=== PATIENT | female | born 1960 | race Caucasian/White ===

== ENCOUNTER 2020-12-21 07:30 | Outpatient (RCR) | payer OTHER, SELFPAY ==
--- NOTE | 2020-11-23 13:13 | PTOPEVAL ---
PHYSICAL THERAPY EVALUATION AND PLAN OF CARE Thank you for referring Evelina Be to [facility].? The patient is scheduled to be seen for therapy? 2x/week for 4 weeks. Please review, sign, date and return this plan of care SHAYY. I agree with and certify that the following plan of care is medically necessary. Referring Physician Date Attending Provider: Alexsandra Hartamn MD Evaluation Diagnosis left adhesive capsulitis Onset 04/2020 Subjective Information does not recall an injury. Query Text:As Reported By Patient/ Pain started in the back of Family the arm and did have sharp and shooting pains. Over the last several months, the pain has started to decrease, but she does have limited motion and certain motions will cause significant pain. Reaching behind back and putting hands on hips and trying to perform upper body dressing are challenging and painful and she often has to modify the activity. Self Report Pain Assessment Left Shoulder(s) Reported Pain Level 0 Pain Description Sharp,Shooting Pain Frequency Chronic,Intermittent Lowest Pain Intensity 0 Greatest Pain Intensity 9 Pain Aggravating Factors Other Pain Aggravating Factors Other Pain Aggravating Factors reaching behind back, putting arms overhead Pain Behaviors None Pain Score Pain Score 0: Self Report Interventions Used Interventions Used By Clinicians Exercise,Joint Mobilization Pain Relief Interventions Used By None Patient Upper Extremity Range of Motion Scapular/ Shoulder Range of Motion Right Shoulder Flexion - Active 149 Shoulder Abduction - Active 147 Shoulder Medial Rotation - Active T8 Query Text:Reach Behind the Back Shoulder Lateral Rotation - Active T3 Query Text:Reach Behind the Head Left Shoulder Flexion - Active 125 Shoulder Abduction - Active 109 Shoulder Medial Rotation - Active left PSIS Query Text:Reach Behind the Back Shoulder Lateral Rotation - Active occiput Query Text:Reach Behind the Head Upper Extremity Muscle Strength Testing Scapular/Shoulder Left Shoulder Flexion Strength 4+ Good + Shoulder Abduction Strength 4+ Good + Shoulder Medial Rotation Strength 4+ Good + Shoulder Lateral Rotation Strength 4+ Good + Posture Thoracic Spine Posture Increased Kyphosis Lumbar Spine Posture
[2020-12-17 16:14] LABS: Urine Cotinine NEGATIVE
--- NOTE | 2020-12-21 08:09 | PTOPEVAL ---
PHYSICAL THERAPY DISCHARGE NOTE Thank you for referring Evelina Be to [facility].? Please review, sign, date and return this discharge SHAYY. I agree with and certify that the following plan of care is medically necessary. Referring Physician Date Diagnosis left adhesive capsulitis Onset 04/2020 Subjective Information Evelina is reporting much Query Text:As Reported By Patient/ greater ease with activities Family that were challenging before start of therapy. States that there is a good amount of improvement in the left shoulder. States that her biggest limitation, although it is better, is reaching behind her back. Self Report Pain Assessment Left Shoulder(s) Reported Pain Level 0 Pain Description Soreness Pain Frequency Chronic,Intermittent Pain Aggravating Factors Other Pain Aggravating Factors Other Pain Aggravating Factors reaching behind back, putting arms overhead Pain Behaviors None Pain Score Pain Score 0: Self Report Interventions Used Interventions Used By Clinicians Exercise,Joint Mobilization Pain Relief Interventions Used By None Patient Upper Extremity Range of Motion Scapular/ Shoulder Range of Motion Right Shoulder Flexion - Active 149 Shoulder Abduction - Active 147 Shoulder Medial Rotation - Active T8 Query Text:Reach Behind the Back Shoulder Lateral Rotation - Active T3 Query Text:Reach Behind the Head Left Shoulder Flexion - Active 142 Shoulder Abduction - Active 158 Shoulder Medial Rotation - Active L5 Query Text:Reach Behind the Back Shoulder Lateral Rotation - Active T2 Query Text:Reach Behind the Head Upper Extremity Muscle Strength Testing Scapular/Shoulder Left Shoulder Flexion Strength 4+ Good + Shoulder Abduction Strength 4+ Good + Shoulder Medial Rotation Strength 5 Normal Shoulder Lateral Rotation Strength 5 Normal Posture Posture Sitting Position Posture Evaluation View Lateral Thoracic Spine Posture Increased Kyphosis Lumbar Spine Posture Neutral Shoulder Posture (L) Rounded,(L) Forward Scapula Posture (L) Tipped Palpation no crepitus noted this date in left scapula; Rehab Teaching Rehab Teaching Teaching Topic Rehab Teaching Topic Components Diagnosis,Home Program As Pertains To Safety Recipient Patient Lear
== END 2020-12-21 10:19 | disposition home or self-care (01) ==
LOC: ANHPT 07:30
PROVIDERS: PCP Family Medicine; Visit Provider Family Medicine
DX: M75.00 Adhesive capsulitis of unspecified shoulder (principal)
CPT/HCPCS: 80307; 97110; 97140; 97161

== ENCOUNTER 2021-05-05 14:04 | Outpatient (CLI) | payer OTHER, SELFPAY ==
--- NOTE | ~2021-05-05 | MM_ITS ---
EXAMINATION: MM screening han BI w janae HISTORY: Screening mammogram TECHNIQUE: Craniocaudal and mediolateral oblique 3-D tomosynthesis images were obtained and synthetic 2-D images were generated. CAD analysis was submitted and interpreted. COMPARISON: No prior mammogram is available for comparison at this institution. BREAST PARENCHYMAL COMPOSITION: The breasts are heterogeneously dense, which may obscure small masses .FINDINGS: Indeterminate grouped microcalcifications noted on the right. Diagnostic right mammogram w ith magnification views is recommended. Otherwise there is no evidence of suspicious mass, calcification, or architectural distortion to sugg est malignancy in either breast. IMPRESSION: 1. Indeterminate right breast microcalcifications 2. Diagnostic right mammogram with magnification views is recommended BI-RADS Category 0: Incomplete: Needs additional imaging evaluation. Reviewed, dictated and finalized at location A.
--- NOTE | ~2021-05-05 | DEXA_ITS ---
Bone Density Report Name: Evelina Be Age: 61 Sex: Female Ethnicity: White Date of : 1960 Indication: postmenopausal; Referring Provider: YOJANA MYRICK Study: Bone densitometry was performed. Exam Date: May 05, 2021 Accession number: [id number] Bone Density: Region BMD T-score Z-score Classification AP Spine (L1-L4) 0.909 -1.3 0.4 Osteopenia Femoral Neck (Left) 0.641 -1.9 -0.5 Osteopenia Total Hip (Left) 0.721 -1.8 -0.7 Osteopenia Total Hip Bilateral Avg 0.747 -1.6 -0.5 Osteopenia Femoral Neck (Right) 0.682 -1.5 -0.1 Osteopenia Total Hip (Right) 0.771 -1.4 -0.3 Osteopenia World Health Organization criteria for BMD impression classify patients as: Normal (T-score at or above -1.0), Osteopenia (T-score between -1.0 and -2.5), or Osteoporosis (T-score at or below -2.5). 10-year Fracture Risk(1): Major Osteoporotic Fracture 9.5% Hip Fracture 1.2% Reported Risk Factors: [place] (), Neck BMD=0.641, BMI=24.0 (1) FRAX(R) Version 3.08. Fracture probability calculated for an untreated patient. Fracture probability may be lower if the patient has received treatment. Previous Exams: Region Exam Age BMD T-score BMD Change BMD Change Date g/cm2 vs Baseline vs Previous AP Spine(L1-L4) 05/05/2021 61 0.909 -1.3 -0.146(-13.9%) -0.146(-13.9%) 02/23/2009 48 1.055 0.1 Total Hip(Left) 05/05/2021 61 0.721 -1.8 -0.112(-13.4%) -0.112(-13.4%) 02/23/2009 48 0.833 -0.9 Total Hip(Right) 05/05/2021 61 0.771 -1.4 -0.116(-13.1%) -0.116(-13.1%) 02/23/2009 48 0.887 -0.5 *Denotes significance at 95% confidence level, LSC for AP Spine = 0.022 g/cm2, LSC for Total Hip = 0.027 g/cm2 Clinical Information Provided by Patient: Patient maximum height was 68 Menopause Age: 53 No regular weight bearing exercise Drinks caffeinated beverages Onset of menses at age 12 Number of children 3 Impression: The patient has low bone mass, based on the Left Femoral Neck T-score. The patient has an estimated ten-year risk of hip fracture of 1.2% and an estimated ten-year risk of major fracture of 9.5%, based on the WHO FRAX algorithm. No significant bone loss was observed. Discussion: BONE DENSITY IS LOW AT ONE OR MORE SKELETAL SITES. This patient's lowest T-score is low at one or more skeletal sites. It meets the World Health Organization's (WHO) criteria for ?low bone mass? (T-score between -1.0 and -2.5). The patient's 10-year ris
== END 2021-05-05 14:05 | disposition home or self-care (01) ==
LOC: ANHIMG 14:04
PROVIDERS: PCP Family Medicine; Visit Provider Family Medicine
DX: Z12.31 Encounter for screening mammogram for malignant neoplasm of breast (principal); Z78.0 Asymptomatic menopausal state; R92.8 Other abnormal and inconclusive findings on diagnostic imaging of breast; M85.89 Other specified disorders of bone density and structure, multiple sites
CPT/HCPCS: 77063; 77067; 77080

== ENCOUNTER 2021-05-18 12:59 | Outpatient (CLI) | payer OTHER, SELFPAY ==
[2021-05-18 13:34] LABS: Alanine Aminotransferase 15 U/L (4-35); Albumin Level 4.3 g/dL (3.5-5.1); Alkaline Phosphatase 114 U/L (38-126); Anion Gap 9 mmol/L (8-16); Aspartate Amino Transferase 24 U/L (14-36); Bilirubin,Total 0.6 mg/dL (0.2-1.3); Blood Urea Nitrogen 12 mg/dL (7-17); Calcium 9.2 mg/dL (8.4-10.2); Carbon Dioxide 30 mmol/L (22-30); Chloride 104 mmol/L (98-107); Estimated Glomerular Filt Rate 50; Glucose 106 mg/dL (65-110); Potassium 3.6 mmol/L (3.4-5.0); Sodium 143 mmol/L (137-145)
[2021-05-22 15:31] LABS: Vitamin D 1,25 (OH)2 Total 40 pg/mL (18-72); Vitamin D2 1,25 (OH)2 <8 pg/mL; Vitamin D3 1,25 (OH)2 40 pg/mL
== END 2021-05-18 13:00 | disposition home or self-care (01) ==
LOC: ANHLAB 13:04
PROVIDERS: PCP Family Medicine; Visit Provider Family Medicine
DX: Z78.0 Asymptomatic menopausal state (principal); M85.80 Other specified disorders of bone density and structure, unspecified site
CPT/HCPCS: 36415; 80053; 82652

== ENCOUNTER 2021-06-07 13:58 | Outpatient (CLI) | payer OTHER, SELFPAY ==
--- NOTE | ~2021-06-07 | MM_ITS ---
EXAMINATION: MM diagnostic mammo unilat RT HISTORY: Right breast calcifications on screening mammogram TECHNIQUE: Magnification views of the right breast were performed. CAD analysis was submitted and int erpreted. COMPARISON: 05/05/2021, 01/04/2018, 12/22/2016 BREAST PARENCHYMAL COMPOSITION: The breasts are heterogeneously dense, which may obscure small masses . FINDINGS: There are grouped, coarse heterogeneous calcifications middle third of the slightly inner b reast at the 2:00 location 6 cm deep to the nipple. No associated mass is identified. IMPRESSION: 1. Indeterminate right breast calcifications. 2. Stereotactic biopsy is recommended. BI-RADS category 4, suspicious findings. Reviewed, dictated and finalized at location A. ECT PRODUCTION ENGINEER
== END 2021-06-07 13:59 | disposition home or self-care (01) ==
LOC: ANHIMG 13:59
PROVIDERS: PCP Family Medicine; Visit Provider Family Medicine
DX: R92.1 Mammographic calcification found on diagnostic imaging of breast (principal)
CPT/HCPCS: 77065

== ENCOUNTER 2021-06-29 12:34 | Outpatient (CLI) | payer OTHER, SELFPAY ==
--- NOTE | ~2021-06-29 | MM_ITS ---
MM stereotactic bx RT, MM post biopsy diagnostic RT, MM stereotactic specimen RT EXAMINATION: MM ster eotactic bx RT, MM post biopsy diagnostic RT, MM stereotactic specimen RT DATE: Renzo Pardo M.D. INDICATION: Abnormal calcifications in the left breast. Stereotactic core biopsy is requested evalua te for malignancy.] TECHNIQUE AND FINDINGS: The risks and potential benefits of the procedure were discussed with the patient and written informe d consent was obtained. The patient was placed in the prone position clustered at the table with the left breast in mediolateral compression, and the area of interest was localized and targeted utilizi ng digital imaging with stereotaxis. After sterile preparation of the skin, 1% lidocaine was utilized for local anesthesia at the skin pun cture site and 1% lidocaine with epinephrine was utilized for deeper local anesthesia/is about the bi opsy site. A 9G Medivo vacuum assisted biopsy needle was advanced to the level of the calcification o f interest from a medial approach utilizing stereotactic guidance and a total of 6 tissue core biopsi es were obtained. A specimen radiograph demonstrates that the calcifications of interest are included within the tissue cores. A tissue marker clip was then placed at the biopsy site. The needle was removed and hemosta sis was achieved. The patient tolerated the procedure well and there is no evidence of significant i mmediate complication. The patient was given verbal as well as written postprocedural instructions p rior to discharge from the department. Tissue cores were submitted to surgical pathology for histolo gic analysis. A 2-view RIGHT unilateral digital mammogram was obtained post procedure and this demonstrates that th e tissue marker clip is in expected position.] IMPRESSION: 1. Successful stereotactic biopsy of calcifications in the upper inner quadrant of the right breast, followed by tissue marker clip placement. Please refer to pathology report for histologic analysis. Reviewed, dictated and finalized at location A. ING MILL OPERATOR IMPRESSION: 1. Successful stereotactic biopsy of calcifications in the upper inner quadran t of the right breast, followed by tissue marker clip placement. Please refer to pathology report for histologic analysis. IMPRESSION: 1. Successful stereotactic biopsy of calcifications in the upper inner quadran t of the right breast, followed by tissue marker clip placement. Please refer to pathology report for histologic analysis.
== END 2021-06-29 12:35 | disposition home or self-care (01) ==
PROVIDERS: PCP Family Medicine; Visit Provider Family Medicine
DX: D05.11 Intraductal carcinoma in situ of right breast (principal); R92.0 Mammographic microcalcification found on diagnostic imaging of breast
CPT/HCPCS: 19081; 77065; 88305; 88342; A4648

== ENCOUNTER 2021-09-04 13:24 | Emergency (ER) | payer OTHER, SELFPAY ==
[2021-09-04 13:35] VITALS: BP 112/66; PULSE 76; RESP 18; TEMP 36.2; O2SAT 100
--- NOTE | 2021-09-04 13:56 | ED.GENADULT ---
HPI - General Adult General Chief complaint: Urogenital-Female Stated complaint: uti complaint Source: patient Mode of arrival: ambulatory Limitations: no limitations History of Present Illness HPI narrative: Patient presents for evaluation of dysuria for the last 2 days. Symptoms have been intermittent. She denies any fever, chills, nausea, vomiting, abdominal pain, back pain, vaginal bleeding/discharge/pruritus. Denies any urinary hesitancy or hematuria. She has had a UTI in the past and this feels similar. She took some tylenol this morning. Otherwise, she has not tried any other therapies. Related Data Allergies Allergy/AdvReac Type Severity Reaction Status Date / Time No Known Allergies Allergy Verified 09/04/21 13:57 Review of Systems Review of Systems: CONSTITUTIONAL: Denies fever, chills, or sweats. EYES: Denies visual changes, redness, or discharge. ENT: Denies rhinorrhea, congestion, sore throat, or otalgia. CARDIOVASCULAR: Denies chest pain, palpitations, or edema. RESPIRATORY: Denies cough or dyspnea. GASTROINTESTINAL: Denies abdominal pain, nausea, vomiting, or diarrhea. GENITOURINARY: Reports dysuria. Denies hematuria, urgeny or hesitancy. SKIN: Denies rash or itching. MUSCULOSKELETAL: Denies back pain, joint pain, or myalgia. NEUROLOGIC: Denies headache, numbness, dizziness, or weakness. PSYCHIATRIC: Denies anxiety or depression. [facility]LY [facility] Past Medical History Medical History Cervical radiculopathy Colon polyp Foreign body finger Osteopenia Surgical History Surgical History H/O breast biopsy Family History Family History Mother Family history of thyroid disease Hypertension Father Diabetes mellitus Hypertension Family history of elevated blood lipids Family history of cardiovascular disease Acute myocardial infarction Family history of coronary artery disease Sibling Family history of gastrointestinal disorder Family history of allergic disorder Grandparent Family history of cardiovascular disease Other Depression Social History Social History (Updated 09/04/21 @ 13:59 by KURT Topete, ) Second hand tobacco smoke exposure: No Alcohol intake: current Substance use: never Living arrangements: with family Gender identity (if verbalized by the patient): Female Sexual Orientation (if Verbalized by the Patient): Straight or Heterosexual Spiritual care concerns: No Exam Narrative: GENERAL: Well-appearing, well-nourished, and in no acute distress. HEAD: Normocephalic, atraumatic. EYES: PERRLA and EOMI. ENT: Nares clear, no rhinorrhea or epistaxis. Mucous membranes moist. Oropharynx without tonsillar hypertrophy exudate or other lesions. Bilateral TMs pearly loza nonbulging NECK: Supple. No adenopathy or masses. No carotid bruits or JVD CHEST: Clear to auscultation. No respiratory distress. No wheezes rales or rhonchi HEART: Regular rate and rhythm. No murmur heard. Normal peripheral pulses. ABDOMEN: Soft, nontender, nondistended, normal active bowel sounds. No CVA tenderness EXTREMITIES: Normal range of motion. No edema. SKIN: Warm, dry, no rash. NEURO: No focal deficits. Alert and oriented x3. PSYCH: Normal mood and affect. Course Course Emergency Course: This is a 61-year-old female who presented with complaints of dysuria. Urine showed 3+ leukocytes and 3+ blood. Will treat with bactrim and pyridium. She has no systemic signs of infection. She should follow up outpatient for further evaluation and treatment and return for worsening symptoms. Pt in agreement with plan of care. Level of Care: Express Care Visit Vital Signs Vital signs: Vital Signs Temperature 36.2 C L 09/04/21 13:35 Pulse Rate 76 09/04/21 13:35 Respiratory Rate 18 09/04/21 13:35 Blood
== END 2021-09-04 14:10 | disposition home or self-care (01) ==
PROVIDERS: Emergency Provider Nurse Practitioner; PCP Family Medicine
DX: N30.00 Acute cystitis without hematuria (principal); M81.0 Age-related osteoporosis without current pathological fracture; M54.12 Radiculopathy, cervical region
CPT/HCPCS: 81003; 87077; 87086; 87186; 99213; G0463

== ENCOUNTER 2022-05-18 07:52 | Outpatient (CLI) | payer OTHER, SELFPAY | END 2022-05-18 07:53 | disposition home or self-care (01) | LOC: ANHAUDASC 07:53 | PROVIDERS: PCP Family Medicine; Visit Provider Family Medicine | DX: H90.3 Sensorineural hearing loss, bilateral (principal) | CPT/HCPCS: 92557; 92567 ==

== ENCOUNTER 2022-08-11 08:00 | Outpatient (RCR) | payer OTHER, SELFPAY | END 2022-10-19 23:59 | disposition home or self-care (01) | LOC: ANHAUDASC 08:00 | PROVIDERS: PCP Family Medicine; Visit Provider Family Medicine | DX: Z46.1 Encounter for fitting and adjustment of hearing aid (principal) | CPT/HCPCS: 99199; V5257 ==

== ENCOUNTER 2023-06-12 07:00 | Outpatient (NON) | payer MEDICARE, SELFPAY | END 2023-06-12 07:01 | disposition home or self-care (01) | PROVIDERS: PCP Family Medicine; Visit Provider Internal Medicine Gastroenterology | DX: Z12.11 Encounter for screening for malignant neoplasm of colon (principal); D12.5 Benign neoplasm of sigmoid colon | CPT/HCPCS: 88305 ==

== ENCOUNTER 2023-06-12 09:33 | Day surgery (SDC) | payer MEDICARE, SELFPAY ==
[2023-05-25 13:36] VITALS: BMI 22.8
--- NOTE | 2023-06-07 13:06 | P.HP_ITS ---
History of Present Illness History of Present Illness Consent: Risks, benefits, and alternatives have been discussed and questions answered. Patient agrees to proceed with procedure. Chief complaint: History of Polyps Narrative: Evelina Be is a 63 year old female Who was referred for colon cancer screening. She had a tubular adenoma removed from her sigmoid colon about 5 years ago. Review of Systems 2 Review of Systems: All systems reviewed & are unremarkable except as noted in HPI and below PMFSH Past Medical History Medical History Cervical radiculopathy Colon polyp Foreign body finger Osteopenia Pneumonia Surgical History Surgical History H/O breast biopsy Family History Family History Mother Family history of thyroid disease Hypertension Father Diabetes mellitus Hypertension Family history of elevated blood lipids Family history of cardiovascular disease Acute myocardial infarction Family history of coronary artery disease Sibling Family history of gastrointestinal disorder Family history of allergic disorder Grandparent Family history of cardiovascular disease Other Depression Social History Social History Smoking status: Never smoker Second hand tobacco smoke exposure: No Alcohol intake: current Alcohol use details: socially Substance use: never Substance use type: does not use Lack of Transportation: No Lack of Food: Never True Current Housing: I Have Housing Concerned About Future Housing: No Difficulty Paying Gas/Electric Bills: No Difficulty Paying for Meds: No Currently Unemployed: No Education: Associate Degree Difficulty w/ Childcare or Family Care: No Living arrangements: with family Gender identity (if verbalized by the patient): Female Sexual Orientation (if Verbalized by the Patient): Straight or Heterosexual Spiritual care concerns: No Meds Home Medications and Allergies Home Medications Medication Instructions Recorded Confirmed Type tamoxifen 20 mg tablet 20 mg PO DAILY 05/09/22 06/12/23 History Allergies Allergy/AdvReac Type Severity Reaction Status Date / Time No Known Allergies Allergy Verified 06/12/23 11:16 Exam Const: General: alert Orientation/consciousness: patient oriented x3 Resp: Auscultation: clear to auscultation bilaterally Cardio: Rhythm: regular rhythm GI: GI Palp: Yes Soft to palpation and No Tenderness to palpation present (GI) Neuro: General: patient oriented x3 Assessment and Plan Assessment and plan (1) Colon cancer screening: Code(s): Z12.11 - Encounter for screening for malignant neoplasm of colon Status: Acute Assessment and Plan: Colonoscopy with possible biopsy or polypectomy or cautery or injection of substances.
[2023-06-12 11:20] VITALS: BP 124/73; PULSE 93; RESP 18; TEMP 36.7; O2SAT 100; BMI 22.4
[2023-06-12] MEDS: LACTATED RINGERS 1,000 ML 150 ML IV CONT (11:36)
--- NOTE | 2023-06-12 11:36 | WPDANESEPPF ---
Anes - Initial Pre Proc Eval Procedure: Operation Date: 06/12/23 12:30 Proposed Procedures p Diagnositc Colonoscopy - Bashir Taveras MD Date/Time: 06/12/23 11:36 Surgeon: Bashir Taveras MD Pre Op Diagnosis: History of Polyps Patient Data Age: 63 Gender: F Height: 1.73 m Weight: 66.85 kg Last Vital Signs Temp 36.7 C 06/12/23 11:20 Pulse 93 06/12/23 11:20 Resp 18 06/12/23 11:20 BP 124/73 06/12/23 11:20 Pulse Ox 100 06/12/23 11:20 O2 Del Method Room Air 06/12/23 11:20 Allergies Allergy/AdvReac Type Severity Reaction Status Date / Time No Known Allergies Allergy Verified 06/12/23 11:16 Home Medications Medication Instructions Recorded Confirmed Type tamoxifen 20 mg tablet 20 mg PO DAILY 05/09/22 06/12/23 History Patient hx anesthesia problems: none Family hx anesthesia problems: none Results Review: All pre-operative results and documents have been reviewed as part of the pre-operative evaluation. [facility], [facility] Past Medical History Medical History Cervical radiculopathy Colon polyp Foreign body finger Osteopenia Pneumonia Surgical History Surgical History H/O breast biopsy Family History Family History Mother Family history of thyroid disease Hypertension Father Diabetes mellitus Hypertension Family history of elevated blood lipids Family history of cardiovascular disease Acute myocardial infarction Family history of coronary artery disease Sibling Family history of gastrointestinal disorder Family history of allergic disorder Grandparent Family history of cardiovascular disease Other Depression Social History Social History Smoking status: Never smoker Second hand tobacco smoke exposure: No Alcohol intake: current Alcohol use details: socially Substance use: never Substance use type: does not use Lack of Transportation: No Lack of Food: Never True Current Housing: I Have Housing Concerned About Future Housing: No Difficulty Paying Gas/Electric Bills: No Difficulty Paying for Meds: No Currently Unemployed: No Education: Associate Degree Difficulty w/ Childcare or Family Care: No Living arrangements: with family Gender identity (if verbalized by the patient): Female Sexual Orientation (if Verbalized by the Patient): Straight or Heterosexual Spiritual care concerns: No Anes - Eval Final PreProcedure Day of Procedure 06/12/23 11:36 Patient weight: normal Heart: regular rate and rhythm Lungs: clear to auscultation Airway: Mallampati scale class II Neurological: alert and oriented Last oral intake: >/= 8 hours ASA classification: III Emergent: no Anesthetic plan: proceed Anesthesia type and monitoring: general GIVS and standard monitoring Results Review: All pre-operative results and documents have been reviewed as part of the pre-operative evaluation. Informed Consent: The patient's anesthetic plan and its attendant risks and benefits were discussed with the patient/family/POA. Questions were solicited and answers provided to the satisfaction of the patient/family/POA.
[2023-06-12 12:25] VITALS: BP 86/55; PULSE 70; RESP 16; O2SAT 98
[2023-06-12 12:35] VITALS: BP 92/68; PULSE 76; RESP 15; O2SAT 100
[2023-06-12 12:45] VITALS: BP 96/67; PULSE 70; RESP 16; O2SAT 100
[2023-06-12 12:51] VITALS: BP 99/61
[2023-06-12 12:56] VITALS: BP 97/68
--- NOTE | 2023-06-12 13:58 | WPDANESPN ---
Anes - Prog Note Post-Op Date/Time: 06/12/23 13:58 Cardiovascular status: normal Respiratory status: normal Airway patency: baseline Mental status: baseline Post-Op hydration status: normal Vital Signs: Last Vital Signs Temp 36.7 C 06/12/23 11:20 Pulse 70 06/12/23 12:45 Resp 16 06/12/23 12:45 BP 97/68 L 06/12/23 12:56 Pulse Ox 100 06/12/23 12:45 O2 Del Method Room Air 06/12/23 12:45 Pain Score (VAS): 0 I/O: Intake & Output 06/11/23 06/12/23 06/12/23 23:59 07:59 15:59 Intake Total 800 Balance 800 Patient Feedback: Patient satisfied with anesthetic care.
== END 2023-06-12 13:10 | disposition home or self-care (01) ==
PROVIDERS: PCP Family Medicine; Visit Provider Internal Medicine Gastroenterology
PROC: 0DJD8ZZ Inspection of Lower Intestinal Tract, Via Natural or Artificial Opening Endoscopic (ICD-10-PCS; CPT 45378; principal; 2023-06-12 12:30)
DX: Z12.11 Encounter for screening for malignant neoplasm of colon (principal); D12.5 Benign neoplasm of sigmoid colon; K57.30 Diverticulosis of large intestine without perforation or abscess without bleeding; K64.8 Other hemorrhoids
CPT/HCPCS: 45385

== ENCOUNTER 2024-01-12 10:29 | Outpatient (CLI) | payer MEDICARE, SELFPAY ==
--- NOTE | ~2024-01-12 | DEXA_ITS ---
Bone Density Report Name: CUONG GOVEA Age: 63 Sex: Female Ethnicity: White Date of : 1960 Indication: osteopenia; cancer; Referring Provider: YOJANA MYRICK Study: Bone densitometry was performed. Exam Date: January 12, 2024 Accession number: [id number] Bone Density: Region BMD T-score Z-score Classification AP Spine(L1-L4) 0.894 -1.4 0.4 Osteopenia Femoral Neck (Left) 0.695 -1.4 0.2 Osteopenia Total Hip (Left) 0.809 -1.1 0.2 Osteopenia Femoral Neck (Right) 0.666 -1.6 -0.1 Osteopenia Total Hip (Right) 0.807 -1.1 0.2 Osteopenia Total Hip Mean 0.808 -1.1 0.2 Osteopenia World Health Organization criteria for BMD impression classify patients as: Normal (T-score at or above -1.0), Osteopenia (T-score between -1.0 and -2.5), or Osteoporosis (T-score at or below -2.5). 10-year Fracture Risk(1): Major Osteoporotic Fracture 9.1% Hip Fracture 1.1% Reported Risk Factors: [place] (), Neck BMD=0.666, BMI=23.3 (1) FRAX(R) Version 3.08. Fracture probability calculated for an untreated patient. Fracture probability may be lower if the patient has received treatment. Previous Exams: Region Exam Age BMD T-score BMD Change BMD Change Date g/cm2 vs Baseline vs Previous AP Spine (L1-L4) 01/12/2024 63 0.894 -1.4 -0.015 (-1.6%) -0.015 (-1.6%) 05/05/2021 61 0.909 -1.3 Total Hip(Left) 01/12/2024 63 0.809 -1.1 0.088 (12.2%)* 0.088 (12.2%)* 05/05/2021 61 0.721 -1.8 Total Hip(Right) 01/12/2024 63 0.807 -1.1 0.036 (4.7%)* 0.036 (4.7%)* 05/05/2021 61 0.771 -1.4 *Denotes significance at 95% confidence level, LSC for AP Spine = 0.022 g/cm2, LSC for Total Hip = 0.027 g/cm2 Clinical Information Provided by Patient: Has the following medical conditions: Cancer Patient maximum height was 68 Menopause Age: 53 No regular weight bearing exercise Drinks caffeinated beverages Onset of menses at age 12 Number of children 3 Impression: The patient has low bone mass, based on the Right Femoral Neck T-score. The patient has an estimated ten-year risk of hip fracture of 1.1% and an estimated ten-year risk of major fracture of 9.1%, based on the WHO FRAX algorithm. No significant bone loss was observed. Discussion: BONE DENSITY IS LOW AT ONE OR MORE SKELETAL SITES. This patient's lowest T-score is low at one or more skeletal sites. It meets the World Health Organization's (WHO) criteria for ?low bone mass
== END 2024-01-12 10:30 | disposition home or self-care (01) ==
LOC: ANHIMG 10:31
PROVIDERS: PCP Family Medicine; Visit Provider Family Medicine
DX: Z78.0 Asymptomatic menopausal state (principal); M85.89 Other specified disorders of bone density and structure, multiple sites
CPT/HCPCS: 77080

== ENCOUNTER 2024-05-16 08:19 | Outpatient (CLI) | payer MEDICARE, SELFPAY ==
[2024-05-16 09:06] LABS: Basophils Absolute Auto 0.1 K/mm3 (0.0-0.1); Basophils Percent Auto 0.8 % (0.2-1.2); Eosinophils Absolute Auto 0.1 K/mm3 (0-0.3); Eosinophils Percent Auto 0.8 % (0-4.4); Hematocrit 40.8 % (37.0-47.0); Hemoglobin 13.1 g/dL (12.0-15.0); Immature Granulocyte Absolute 0.03 K/mm3 (0.00-0.031); Immature Granulocyte Percent A 0.5 % (0-0.5); Lymphocytes Absolute Auto 2.04 K/mm3 (0.9-3.2); Lymphocytes Percent Auto 34.6 % (18.3-44.2); Mean Corpuscular HGB Conc 32.1 g/dl (32-36); Mean Corpuscular Hemoglobin 29.6 pg (26-34); Mean Corpuscular Volume 92.1 fl (80-100); Mean Platelet Volume 10.4 fl (7.4-10.4); Monocytes Absolute Auto 0.5 K/mm3 (0.1-0.6); Neutrophils Absolute Auto 3.2 K/mm3 (1.3-6.7); Neutrophils Percent Auto 54.3 % (45.5-73.1); Platelet Count Result 200 k/mm3 (150-375); Red Blood Count 4.43 M/mm3 (4.2-5.4); Red Cell Distribution Width 13.3 % (11.5-14.5); White Blood Count 5.9 K/mm3 (4.5-10.0)
[2024-05-16 09:16] LABS: Alanine Aminotransferase 14 U/L (6-35); Albumin Level 4.4 g/dL (3.5-5.1); Alkaline Phosphatase 48 U/L (38-126); Anion Gap 10 mmol/L (4-12); Aspartate Amino Transferase 20 U/L (14-36); Bilirubin,Total 0.9 mg/dL (0.2-1.3); Blood Urea Nitrogen 16 mg/dL (7-17); Calcium 8.9 mg/dL (8.4-10.2); Carbon Dioxide 27 mmol/L (22-30); Chloride 103 mmol/L (98-107); Cholesterol 161 mg/dL (0-200); Estimated Glomerular Filt Rate 55; Glucose 93 mg/dL (65-110); HDL Direct 50 mg/dL; Sodium 140 mmol/L (137-145); Triglycerides 105 mg/dL (<150)
[2024-05-16 09:27] LABS: LDL Cholesterol Direct 79 mg/dL
== END 2024-05-16 08:20 | disposition home or self-care (01) ==
PROVIDERS: PCP Family Medicine; Visit Provider Family Medicine
DX: E78.5 Hyperlipidemia, unspecified (principal)
CPT/HCPCS: 36415; 80053; 80061; 85025

== ENCOUNTER 2025-05-23 12:15 | Outpatient (CLI) | payer MEDICARE, SELFPAY ==
--- OUTSIDE RECORDS SUMMARY | 2025-05-23 12:31 | XMS_ITS | Clinical Summary ---
Author Organization [facility] Address [address] [place] [address] Care Team Providers Care Thermospray Operator Name Role Phone Hernando Hartman MD Primary Care Provider [phone] Estelle Huston MD PhD Unavailable [phone] Allergies No known active allergies Medications tamoxifen (NOLVADEX) 20 mg tablet TAKE 1 TABLET BY MOUTH DAILY 100 tablet 2 09/02/2024 Active Active Problems Problem Noted Date Diagnosed Date Encounter for follow-up exam ination after completed treatment for conditions other than malignant neoplasm 11/26/2021 Personal history of in-situ neoplasm of breast 0 11/26/2021 Personal history of irradiation 11/26/2021 senior living (current) use of s elective estrogen receptor modulators (serms) 11/26/2021 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 Cancer Staging:Pathologic:Stage 0(pTis (DCIS), cN0, cM0, G3, ER+, ME+, HER2: Not Assessed) - Signed by Estelle Huston MD PhD on 09/09/2021 Encounters Date Type Department Care Team Description 04/17/2025 Results Follow-Up [facility] Medicine Surgery [address] [place] [address] [id number] Demi Hudson PA Screening Mammogram Bilateral W Fausto 04/16/2025 10:56 AM CDT - 04/16/2025 11:59 PM CDT Hospital Encounter [facility] - Breast Imaging [address] [place] [address] [address] [place] [address] Encounter for follow-up examination after completed treatment for conditions other than malignant neoplasm; Screening mammogram for breast cancer Discharge Disposition: Discharge to home or self care 04/16/2025 10:45 AM CDT Office Visit [facility] Medicine Surgery [facility] [address] [place] [address] Demi Hudson PA Screening mammogram for breast cancer (Primary Dx); Dense breast tissue; History of breast cancer; Ductal carcinoma in situ (DCIS) of right breast from Last 3 Months Immunizations Immunization Administration Dates Next Due Influenza, Quadrivalent, Hig h Dose, Preservative Free, Intrr 05/08/2023 Influenza, Unspecified 05/01/2024 Tdap 02/08/2021 ZOSTER Recombinant 03/17/2022,01/07/2022 Surgical History Surgery Date Site/Laterality Comments BREAST BIOPSY 07/17/2020 - 07/16/2021 Right DCIS BREAST LUMPECTOMY 07/17/2007 - 07/16/2008 Right TONSILLECTOMY 07/17/1977 - 07/16/1978 HERNIA REPAIR 07/17/1957 - 1958 COLONOSCOPY last one 2018 couple MASTECTOMY, PARTIAL 08/09/2021 Right Medical History Medical History Date Comments Ductal carcinoma in situ (DCIS) of right breast 2021 History of radiation therapy Family History Medical History Relation Name Comments Cancer Maternal Grandmother UNSURE OF THE TYPE Prostate cancer Mother's Brother Anesthesia problems Neg Hx Relation Name Status Comments Maternal Grandmother Mother's Brother Social History Tobacco Use Types Packs/Day Years Used Date Smoking Tobacco: Never Smokeless Tobacco: Never Tobacco Cessation:Counseling Given: Not Answered AUDIT-C Answer Date Recorded Q1: How often do you have a drink containing alc ohol? 2-3 times a week 08/09/2021 Q2: How many drinks containi ng alcohol do you have on a typical day when you are drinking? 1 or 2 08/09/2021 Q3: How often do you have si x or more drinks on one occasion? Never 08/09/2021 Comments No Sex and Gender Information Value Date Recorded Sex Assigned at Not on file Legal Sex Female 4:02 PM CODING COMPLIANCE AUDITOR Gender Identity Not on file Sexual Orientation Straight 07/23/2021 6: 07 AM CODING COMPLIANCE AUDITOR Obstetrics History Para Term AB IAB SAB Ectopic Multiple Livin g Live Births 3 3 3 3 Date Outcome GA Total Labor Labor/2nd/3rd Weight Sex Type Anes PTL Ernestine A1 A5 Name Clin Term Term Term Last Filed Vital Signs Vital Sign Reading Time Taken Comments Blood Pressure 112/72 08/09/2021 9:30 AM CODING COMPLIANCE AUDITOR Pulse 85 08/09/2021 9:30 AM CODING COMPLIANCE AUDITOR Temperature 36.1 C (97 F) 08/09/2021 9:10 AM CODING COMPLIANCE AUDITOR Respiratory Rate 16 08/09/2021 9:30 AM CODING COMPLIANCE AUDITOR Oxygen Saturation 98% 08/09/2021 9:30 AM CODING COMPLIANCE AUDITOR Inhaled Oxygen Concentration - - Weight 73.1 kg (161 lb 3.2 oz) 04/16/2025 11:12 AM CDT Height 170.2 cm (5' 7.01) 04/16/2025 11:12 AM C DT Body Mass Index 25.24 04/16/2025 11:12 AM CDT Plan of Treatment Health Maintenance Due Date Last Done Comments Colon Cancer Screening-Colonoscopy 1958 Depression Screening 1958 Hepatitis C Screening 1960 Osteoporosis Screening-Bone Density Scan 1958 Hepatitis B Screening 1976 Pneumococcal vaccine 65+ (1 of 2 - PCV) 1977 Fall Risk Assessment 08/09/2022 08/09/2021 Well Visit 65+ 2023 Covid-19 Vaccine (2024-2 6 season) 2025 05/22/2023, 05/27/2022, 01/07/2022, Additional history exists Influenza Vaccine (#1) 2025 05/01/2024, 2022 Breast Cancer Screening-Mammogram 04/16/2026 04/16/2025, 04/16/2024, 04/11/2023, Additional history exists DTaP/Tdap/Td Vaccine (2 - Td or Tdap) 02/08/2031 02/08/2021 Zoster Vaccine Completed 03/17/2022, 01/07/2022 Medical Devices Implanted Type Area Steel Rod Buster Device Identifier Shelf Expiration Date Model / Serial / Lot [employer] [id number] 18ga 7cm Marker Breast Biopsy - [id number] Implanted:Qty : 1 on 08/05/2021 at [facility] Right: Breast [employer] [id number] 12/14/2024 [id number] Procedures Procedure Name Priority Date/Time Associated Diagnosis Comments SCREENING MAMMOGRAM BILATERAL W FAUSTO Schedule Routine, Read Routine (OP Routine) 04/16/2025 11:20 AM CDT Encounter for follow-up examination after completed treatment for conditions other than malignant neoplasm Screening mammogram for breast cancer from Last 3 Months Results * Screening Mammogram Bilateral W Fausto (04/16/2025 11:20 AM CDT) Anatomical Region Laterality Modality Breast Bilateral Mammography Impressions 04/17/2025 11:35 AM CDT Bilateral No evidence of malignancy in either breast. OVERALL BI-RADS FINAL ASSESSMENT: 2 - Benign RECOMMENDATION: Recommend bilateral annual screening mammography. If supplemental screening is desired for heterogeneously dense breast tissue, consider breast MRI every 1-2 years. If breast MRI cannot be performed, contrast-enhanced mammography is an alternative. Narrative 04/17/2025 11:35 AM CDT EXAMINATION: Screening Mammogram Bilateral W Fausto: 04/16/2025 COMPARISON: Relevant prior studies available at the time of interpretation were reviewed, including the most recent mammogram on: 04/16/2024. TECHNIQUE: Mammography was performed with 2D and 3D digital breast tomosynthesis (DBT) images. CAD was utilized. BREAST PARENCHYMAL COMPOSITION: The breasts are heterogeneously dense, which may obscure small masses. FINDINGS: Right 1) Post-Surgical Finding: There are post-surgical findings from a previous lumpectomy with radiation seen in the right breast. There has been no interval development of a suspicious finding. This finding is benign. There is no suspicious mass, calcification, or architectural distortion. Left There is no suspicious mass, calcification, or architectural distortion. Demi SOW MAMMO PROCEDURES Final Resu lt from Last [address] [facility] ANTH ACCESS [facility] MEDICARE ADVANTAGE [employer] [place] [address] Care Teams Thermospray Operator Relationship Specialty Start Date End Date Hernando Hartman MD PCP - General 12/21/16 Estelle Huston MD PhD [address] [facility] [address] [place] [address] Radiation Oncologist Radiation Oncology 09/09/21
--- OUTSIDE RECORDS SUMMARY | 2025-05-23 12:31 | XMS_ITS | Encounter Summary ---
Author Organization [facility] Address [address] [facility] [address] [place] [address] Phone Care Team Providers Care Chemical Sprayer Name Role Phone Hernando Hartman MD Primary Care Provider [phone] Estelle Huston MD PhD Unavailable [phone] Encounter Details Date Type Department Care Team (Late st Contact Info) Description 04/17/2025 Results Follow-Up [facility] Medicine Surgery [address] [facility] Floor [address] [place] [address] Demi Hudson PA [address] [facility] [id number] [place] [address] Screening Mammogram Bilateral W Fausto Social History Tobacco Use Types Packs/Day Years Used Date Smoking Tobacco: Never Smokeless Tobacco: Never AUDIT-C Answer Date Recorded Q1: How often [...] on file Legal Sex Female 4:02 PM DOPER Gender Identity Not on file Sexual Orientation Straight 07/23/2021 6: 07 AM DOPER documented as of this encounter Plan of Treatment Not on file documented as of this encounter Visit Diagnoses Not on filedocumented in this encounter Care Teams Chemical Sprayer Relationship Specialty Start Date End Date Hernando Hartman MD PCP - General 12/21/16 Estelle Huston MD PhD [address] [facility] [address] [place] [address] Radiation Oncologist Radiation Oncology 09/09/21 documented as of this encounter
--- OUTSIDE RECORDS SUMMARY | 2025-05-23 12:31 | XMS_ITS ---
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 Past Treatment and Therapy Plans No past plan information found. Radiation Treatments * Course [id number]/28/2021 - 10/04/2021 Treatment Period Energy Fraction Dose Fractions Total Dose Plans Planned RIGHT BREAST 09/28/2021 - 10/04/2021 520 5 / 2,600 Reference Points Delivered PTV R [id number] 09/28/2021 - 10/04/2021 2,600
[2025-05-23 12:50] LABS: Alanine Aminotransferase 16 U/L (6-35); Albumin Level 4.3 g/dL (3.5-5.1); Alkaline Phosphatase 50 U/L (38-126); Anion Gap 8 mmol/L (4-12); Aspartate Amino Transferase 26 U/L (14-36); Bilirubin,Total 0.6 mg/dL (0.2-1.3); Blood Urea Nitrogen 11 mg/dL (7-17); Calcium 9.0 mg/dL (8.4-10.2); Carbon Dioxide 26 mmol/L (22-30); Chloride 103 mmol/L (98-107); Estimated Glomerular Filt Rate > 60; Glucose 92 mg/dL (65-110); HDL Direct 54 mg/dL; Potassium 4.8 mmol/L (3.4-5.0); Sodium 137 mmol/L (137-145); Total Protein 7.1 g/dL (6.3-8.2)
[2025-05-23 13:01] LABS: Cholesterol 166 mg/dL (0-200); Triglycerides 91 mg/dL (<150)
[2025-05-23 13:26] LABS: Thyroid Stimulating Hormone 2.970 uIU/mL (0.465-4.680)
== END 2025-05-23 12:16 | disposition home or self-care (01) ==
PROVIDERS: PCP Family Medicine; Visit Provider Nurse Practitioner Family
DX: E78.5 Hyperlipidemia, unspecified (principal); E55.9 Vitamin D deficiency, unspecified; R53.83 Other fatigue; M85.80 Other specified disorders of bone density and structure, unspecified site; D05.10 Intraductal carcinoma in situ of unspecified breast; L71.9 Rosacea, unspecified; Z78.0 Asymptomatic menopausal state
CPT/HCPCS: 36415; 80053; 80061; 82306; 84443